=== PATIENT | female | born 1945 | race Caucasian/White ===

== ENCOUNTER 2018-02-04 20:58 | Emergency (ER) | payer MEDICARE, MEDICAID ==
[~2018-02-04] VITALS: Ht 167.6 cm; Wt 60.0 kg
[~2018-02-04 20:58] MED LIST: CENTTAB PO; CODCAP PO; LORA-361 PO; ZANT150T2 PO
[2018-02-04 21:47] VITALS: BP 128/60; PULSE 84; RESP 18; TEMP 98.6; O2SAT 98
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
== END 2018-02-05 00:37 | disposition left against medical advice (07) ==
LOC: NEPC 20:58
DX: T76.21XA Adult sexual abuse, suspected, initial encounter (principal); G35 Multiple sclerosis; Z72.0 Tobacco use; Z87.39 Personal history of other diseases of the musculoskeletal system and connective tissue; Z86.69 Personal history of other diseases of the nervous system and sense organs
CPT/HCPCS: 99281

== ENCOUNTER 2018-02-14 15:59 | Inpatient (IN) | payer MEDICARE, OTHER ==
[~2018-02-14] VITALS: Ht 167.6 cm; Wt 41.1 kg
[2018-02-14 16:10] VITALS: BP 160/71; PULSE 77; RESP 16; TEMP 98.6; O2SAT 98
--- NOTE | 2018-02-14 16:25 | PD ---
HPI Chief Complaint: Psychiatric Symptoms Time Seen by Provider: 16:15 Travel History International Travel<30 days: No Contact w/Intl Traveler<30days: No Traveled to known affect area: No History of Present Illness HPI 72-year-old female presents to the ED under Arriola act for psychiatric evaluation. According to the Arriola act paperwork the patient seemed disoriented and refused to answer questions of the police. They contacted her son who states she has not been taking her psychiatric medications. On presentation the patient is calm and cooperative. She denies suicidal or homicidal denies any psychiatric diagnoses. She denies any somatic complaints. She states "I thought I had a right to refuse to answer questions by the police." She is a smoker since age 18. Denies illicit drug use. Endorses occasional alcohol use. Denies any use today. PFSH Past Medical History Arthritis: Yes Dementia: Yes Diminished Hearing: No Medical other: Yes (MULTIPLE SCLEROSIS) Musculoskeletal: Yes (MS) Seizures: Yes (As a result of a fall years ago) Tetanus Vaccination: Never Vaccinated Influenza Vaccination: No ?: Not : 2 Para: 2 Past Surgical History Abdominal Surgery: Yes (hernia repair) Hysterectomy: Yes (PARTIAL) Other Surgery: Yes (HERNIA REPAIR) Social History Alcohol Use: Yes Tobacco Use: Yes (1/2PPD) Substance Use: No (PT DENIES) Allergies-Medications (Allergen,Severity, Reaction): Coded Allergies: No Known Allergies (Verified Adverse Reaction, Unknown, 02/14/18) Reported Meds & Prescriptions Reported Meds & Active Scripts Active Keflex (Cephalexin) 500 Mg Cap 500 Mg PO Q12H 5 Days Review of Systems Except as stated in HPI: all other systems reviewed are Neg Physical Exam Narrative GENERAL: Well-nourished, well-developed thin white female no acute distress. PSYCH: Cooperative, calm. SKIN: Focused skin assessment warm/dry. HEAD: Normocephalic. EYES: No scleral icterus. No injection or drainage. NECK: Supple, trachea midline. No JVD or lymphadenopathy. CARDIOVASCULAR: Regular rate and rhythm without murmurs, gallops, or rubs. RESPIRATORY: Breath sounds clear and equal bilaterally. No accessory muscle use. GASTROINTESTINAL: Abdomen soft, non-tender, nondistended. Active bowel sounds. MUSCULOSKELETAL: No cyanosis, or edema. BACK: Nontender without obvious deformity. No CVA tenderness. Data Data Last Documented VS Vital Signs Date Time Temp Pulse Resp B/P (MAP) Pulse Ox O2 Delivery O2 Flow Rate FiO2 02/14/18 17:39 81 21 163/71 (101) 100 Room Air 02/14/18 16:10 98.6 Orders Orders Complete Blood Count With Diff (02/14/18 16:14) Comprehensive Metabolic Panel (02/14/18 16:14) Thyroid Stimulating Hormone (02/14/18 16:14) Psych Screen (02/14/18 16:14) Drug Screen, Random Urine (02/14/18 16:14) Urinalysis - C+S If Indicated (02/14/18 16:15) Urine Culture (02/14/18 16:35) Cephalexin (Keflex) (02/14/18 17:45) Labs Laboratory Tests Test 02/14/18 16:08 02/14/18 16:35 White Blood Count 6.7 TH/MM3 Red Blood Count 5.03 MIL/MM3 Hemoglobin 14.6 GM/DL Hematocrit 44.7 % Mean Corpuscular Volume 88.9 FL Mean Corpuscular Hemoglobin 29.0 PG Mean Corpuscular Hemoglobin Concent 32.6 % Red Cell Distribution Width 14.2 % Platelet Count 226 TH/MM3 Mean Platelet Volume 9.4 FL Neutrophils (%) (Auto) 68.9 % Lymphocytes (%) (Auto) 20.1 % Monocytes (%) (Auto) 8.7 % Eosinophils (%) (Auto) 1.6 % Basophils (%) (Auto) 0.7 % Neutrophils # (Auto) 4.6 TH/MM3 Lymphocytes # (Auto) 1.3 TH/MM3 Monocytes # (Auto) 0.6 TH/MM3 Eosinophils # (Auto) 0.1 TH/MM3 Basophils # (Auto) 0.0 TH/MM3 CBC Comment DIFF FINAL Differential Comment Blood Urea Nitrogen 12 MG/DL Creatinine 0.76 MG/DL Random Glucose 88 MG/DL Total Protein 7.6 GM/DL Albumin 4.2 GM/DL Calcium Level 8.7 MG/DL Alkaline Phosphatase 79 U/L Aspartate Amino Transf (AST/SGOT) 32 U/L Alanine Aminotransferase (ALT/SGPT) 29 U/L Total Bilirubin 0.6 MG/DL Sodium Level 141 MEQ/L Potassium Level 3.7 MEQ/L Chloride Level 106 MEQ/L Carbon Dioxide Level 25.5 MEQ/L Anion Gap 10 MEQ/L Estimat Glomerular Filtration Rate 75 ML/MIN Thyroid Stimulating Hormone 3rd Gen 2.590 uIU/ML Urine Color YELLOW Urine Turbidity HAZY Urine pH 5.0 Urine Specific [place] 1.019 Urine Protein NEG mg/dL Urine Glucose (UA) NEG mg/dL Urine Ketones TRACE mg/dL Urine Occult Blood NEG Urine Nitrite NEG Urine Bilirubin NEG Urine Urobilinogen 2.0 mg/dL Urine Leukocyte Esterase LARGE Urine RBC LESS THAN 1 /hpf Urine WBC 33 /hpf Urine Squamous Epithelial Cells 5 /hpf Urine Bacteria OCC /hpf Urine Hyaline Casts 2 /lpf Urine Mucus MANY /lpf Microscopic Urinalysis Comment CULTURE INDICATED Urine Opiates Screen NEG Urine Barbiturates Screen NEG Urine Amphetamines Screen NEG Urine Benzodiazepines Screen NEG Urine Cocaine Screen NEG Urine Cannabinoids Screen NEG MDM Medical Decision Making Medical Screen Exam Complete: Yes Emergency Medical Condition: Yes Differential Diagnosis Adjustment disorder versus anxiety versus bipolar versus depression versus dementia versus electrolyte disorder versus malingering versus mood disorder versus ODD versus psychosis versus PTSD versus schizophrenia versus schizoaffective disorder versus substance-induced mood disorder versus other Narrative Course 72-year-old female presents to the ED under [place] Marg[place]ita act for psychiatric evaluation. According to the Anita Margarita act paperwork the patient seemed disoriented and refused to answer questions of the police. They contacted her son who states she has not been taking her psychiatric medications. She denies suicidal or homicidal denies any psychiatric diagnoses. She denies any somatic complaints. She states "I thought I had a right to refuse to answer questions by the police." She is a smoker since age 18. Denies illicit drug use. Endorses occasional alcohol use. Denies any use today. Vitals reviewed. Physical exam is unremarkable. No concerning abnormalities of the CBC, CMP. UA: Hazy, trace ketones, large leukocyte esterase, 33 WBCs, occasional bacteria. Culture indicated. Toxicology: Negative. Patient's prescribed Keflex 500 mg twice daily 5 days. First doses administered in the ED. She is medically cleared for psychiatric evaluation. Scripts Cephalexin (Keflex) 500 Mg Cap 500 MG PO Q12H for Infection for 5 Days, #10 CAP 0 Refills Prov: Aj Don MD 02/14/18 Yaneli Tan Feb 14, 2018 16:25
[2018-02-14 16:49] LABS: AUTOMATED NEUTROPHIL # 4.6 TH/MM3 (1.8-7.7); BASOPHIL % 0.7 % (0.0-2.0); EOSINOPHIL # 0.1 TH/MM3 (0-0.4); EOSINOPHIL % 1.6 % (0.0-4.0); HEMATOCRIT 44.7 % (35.0-46.0); HEMOGLOBIN 14.6 GM/DL (11.6-15.3); LYMPH % 20.1 % (9.0-44.0); LYMPHOCYTE # 1.3 TH/MM3 (1.0-4.8); MEAN CELL VOLUME 88.9 FL (80.0-100.0); MEAN CORPUSCULAR HGB CONC 32.6 % (32.0-36.0); MEAN PLATELET VOLUME 9.4 FL (7.0-11.0); MONO % 8.7 % (0.0-8.0); MONOCYTE # 0.6 TH/MM3 (0-0.9); NEUT % 68.9 % (16.0-70.0); PLATELET COUNT 226 TH/MM3 (150-450); RED BLOOD COUNT 5.03 MIL/MM3 (4.00-5.30); RED CELL DISTRIBUTION WIDTH 14.2 % (11.6-17.2); WHITE BLOOD COUNT 6.7 TH/MM3 (4.0-11.0)
[2018-02-14 17:24] LABS: ALBUMIN 4.2 GM/DL (3.4-5.0); ALT (GPT) 29 U/L (10-53); AST (GOT) 32 U/L (15-37); BICARBONATE 25.5 MEQ/L (21.0-32.0); BLOOD UREA NITROGEN 12 MG/DL (7-18); CALCIUM 8.7 MG/DL (8.5-10.1); CHLORIDE 106 MEQ/L (98-107); CREATININE 0.76 MG/DL (0.50-1.00); GLOMERULAR FILTRATION RATE 75 ML/MIN (>89); GLUCOSE,RANDOM 88 MG/DL (74-106); SODIUM (NA) 141 MEQ/L (136-145)
[2018-02-14 17:25] LABS: BACTERIA, URINE OCC /hpf; BILIRUBIN, URINE NEG (NEG); BLOOD, URINE NEG (NEG); GLUCOSE,URINE NEG (NEG); HYALINE CAST, URINE 2 /lpf (RARE); KETONE, URINE TRACE mg/dL (NEG); MUCUS URINE MANY /lpf (OCC); NITRITE,URINE NEG (NEG); SQUAMOUS EPITHELIAL CELL URINE 5 /hpf (0-5); URINE COLOR YELLOW (YELLW/STRAW); URINE LEUKOCYTE ESTERASE LARGE (NEG)
[2018-02-14 17:33] LABS: ALKALINE PHOSPHATASE 79 U/L (45-117); TOTAL BILIRUBIN ADULT 0.6 MG/DL (0.2-1.0); TOTAL PROTEIN 7.6 GM/DL (6.4-8.2)
[2018-02-14] MEDS ORDERED: CEPH-460 PO (17:35)
[2018-02-14 17:39] VITALS: BP 163/71; PULSE 81; RESP 21; O2SAT 100
[2018-02-14] MEDS ORDERED: CEPHALEXIN MONOHYDRATE 500 MG CAP PO ONE (17:45)
[2018-02-15] MEDS ORDERED: LORazepam 2 MG/ML VIAL IM ONE (01:45)
[2018-02-15 02:10] VITALS: BP 132/61; PULSE 65; RESP 20; O2SAT 96
[2018-02-15 08:23] VITALS: BP 111/54; PULSE 66; RESP 18; O2SAT 95
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
[2018-02-15] MEDS ORDERED: ALUMINUM/MAGNESIUM/SIMETH 30 ML CUP PO PRN (10:30)
[2018-02-15] MEDS ORDERED: ACETAMINOPHEN 325 MG TAB PO PRN (10:30)
[2018-02-15] MEDS ORDERED: MAGNESIUM HYDROXIDE SUSP 30 ML CUP PO PRN (10:30)
[2018-02-15] MEDS: CEPHALEXIN MONOHYDRATE 500 MG CAP PO SCH ×2 (11:00→23:00)
[2018-02-15] MEDS: NICOTINE 14 MG/24 HR PATCH T-DERMAL SCH (11:00)
[2018-02-15 11:47] VITALS: BP 115/57; PULSE 88; RESP 18; TEMP 98.2; O2SAT 92
[2018-02-15] MEDS ORDERED: UNIS25TA3 PO (17:39)
[2018-02-15 17:46] VITALS: BP 116/65; PULSE 80; RESP 18; TEMP 98.3; O2SAT 80
[2018-02-16 05:49] VITALS: BP 106/54; PULSE 54; RESP 16; TEMP 98.2; O2SAT 92
[2018-02-16 08:56] LABS: BICARBONATE 27.7 MEQ/L (21.0-32.0); BLOOD UREA NITROGEN 12 MG/DL (7-18); CALCIUM 8.8 MG/DL (8.5-10.1); CHLORIDE 107 MEQ/L (98-107); CREATININE 0.71 MG/DL (0.50-1.00); GLOMERULAR FILTRATION RATE 81 ML/MIN (>89); GLUCOSE,RANDOM 101 MG/DL (74-106); SODIUM (NA) 143 MEQ/L (136-145)
[2018-02-16 08:57] LABS: CHOLESTEROL 173 MG/DL (120-200)
[2018-02-16] MEDS: NICOTINE 14 MG/24 HR PATCH T-DERMAL SCH (09:00)
[2018-02-16] MEDS: REMOVE OLD PATCH T-DERMAL SCH (09:00)
[2018-02-16 09:24] LABS: CHOLESTEROL/ HDL RATIO 3.31 RATIO; HDL CHOLESTEROL 52.2 MG/DL (40.0-60.0); LDL CHOLESTEROL 106 MG/DL (0-99); TRIGLYCERIDES 73 MG/DL (42-150)
[2018-02-16] MEDS: CEPHALEXIN MONOHYDRATE 500 MG CAP PO SCH ×2 (11:00→23:00)
[2018-02-16 11:36] LABS: HEMOGLOBIN A1C 5.2 % (4.3-6.0)
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
[2018-02-16] MEDS ORDERED: diphenhydrAMINE HCL 50 MG CAP PO PRN (12:15)
[2018-02-16] MEDS ORDERED: LORazepam 0.5 MG TAB PO PRN (12:15)
[2018-02-16] MEDS: HALOPERIDOL 2 MG TAB PO SCH ×3 (13:45→21:30)
[2018-02-16] MEDS: HALOPERIDOL LACTATE 5 MG/ML AMP IM SCH ×2 (13:45→21:30)
[2018-02-16 17:32] VITALS: BP 119/56; PULSE 56; RESP 16; TEMP 98.2; O2SAT 93
--- NOTE | 2018-02-16 17:54 | EKG ---
Date Performed: 02/15/2018 Time Performed: 11:06:23 PTAGE: 72 years EKG: Sinus rhythm Poor R wave progression, cannot exclude anteroseptal infarct versus lead placement NORMAL ECG NO PREVIOUS TRACING DOCTOR: Richard Arroyo Interpretating Date/Time 02/16/2018 17:54:10
[2018-02-17 06:05] VITALS: BP 117/53; PULSE 58; RESP 16; TEMP 98.1; O2SAT 96
[2018-02-17] MEDS: HALOPERIDOL LACTATE 5 MG/ML AMP IM SCH ×2 (09:00→20:58)
[2018-02-17] MEDS: NICOTINE 14 MG/24 HR PATCH T-DERMAL SCH (09:00)
[2018-02-17] MEDS: REMOVE OLD PATCH T-DERMAL SCH (09:00)
[2018-02-17] MEDS: HALOPERIDOL 2 MG TAB PO SCH ×2 (09:00→20:57)
[2018-02-17] MEDS: CEPHALEXIN MONOHYDRATE 500 MG CAP PO SCH ×2 (11:00→22:32)
--- NOTE | 2018-02-17 15:13 | HHI.PYPN ---
Subjective Remarks Reviewed electronic medical records and discussed case with staff. Follow-up was conducted in the hallway. Patient was observed attempting to clean an area of the hallway with the sock on her foot. She states this is "calming to me". She shows some insight when she reports that she was [place] acted "to keep myself safe". She reports that she has been sleeping and eating well. She does have some difficulty with recalling her home address. Mental Status Examination Appearance: Appropriate Consciousness: Alert Orientation: x4 Motor Activity: Normal gait Speech: Hesitant Language: Adequate Fund of Knowledge: Adequate Attention and Concentration: Adequate Memory: Unremarkable Mood: Irritable Affect: Blunt Thought Process & Associations: Intact Thought Content: Bizarre thinking, Delusional Hallucination Type: Auditory (reports hears people talking) Delusion Type: Bizarre (People shooting drugs into her system, people taking her organs out of her body) Suicidal Ideation: No Suicidal Plan: No Suicidal Intention: No Homicidal Ideation: No Homicidal Plan: No Homicidal Intention: No Insight: Poor Judgment: Poor Results Labs Date/Time Source Procedure Growth Status 02/14/18 16:35 Urine Clean Catch Urine Culture - Final 50-100,000 CFU/ML MIXED NICANOR... Complete Vitals/IOs Vital Signs Date Time Temp Pulse Resp B/P (MAP) Pulse Ox O2 Delivery O2 Flow Rate FiO2 02/17/18 06:05 98.1 58 16 117/53 (74) 96 02/15/18 08:23 Room Air Assessment & Plan Problem List: (1) Dementia ICD Codes: F03.90 - Unspecified dementia without behavioral disturbance (2) Psychosis ICD Codes: F29 - Unspecified psychosis not due to a substance or known physiological condition Status: Acute Assessment & Plan Estimated LOS: Continue with current treatment plan. She will be reevaluated by her attending psychiatrist tomorrow. Days Justification for Cont. Inpt. Moving this patient to a less restrictive environment would likely result in decompensation. Problem Qualifiers (1) Psychosis: Qualified Codes: F29 - Unspecified psychosis not due to a substance or known physiological condition Albina Batres Feb 17, 2018 15:13
[2018-02-17 17:40] VITALS: BP 138/62; PULSE 75; RESP 16; TEMP 98.8; O2SAT 93
[2018-02-18 05:56] VITALS: BP 128/58; PULSE 74; RESP 16; TEMP 98.4; O2SAT 93
[2018-02-18 05:59] VITALS: BP 124/70; PULSE 74; RESP 16; TEMP 98.4; O2SAT 91
[2018-02-18] MEDS: HALOPERIDOL 2 MG TAB PO SCH ×2 (08:23→20:57)
[2018-02-18] MEDS: REMOVE OLD PATCH T-DERMAL SCH (08:26)
[2018-02-18] MEDS: HALOPERIDOL LACTATE 5 MG/ML AMP IM SCH ×2 (08:26→21:00)
[2018-02-18] MEDS: NICOTINE 14 MG/24 HR PATCH T-DERMAL SCH (08:26)
[2018-02-18] MEDS: CEPHALEXIN MONOHYDRATE 500 MG CAP PO SCH ×2 (09:29→23:00)
--- NOTE | 2018-02-18 11:17 | PD.TTN ---
Patient Problems 1. Discharge planning 2. Medication compliance 3. Knowledge deficit 4. Lack of coping skills Progress Toward Goals Provider Present: Dr. Luz Sheikh Provider Input: Dr. Sheikh's treatment team met to discuss patient's treatment plan, medication and discharge Patient continues to present psychotic, Will continue with treament. Nurse(s) Input: Patient's nurse reports patient psychotic, paranoid, medication compliant Psychiatric Counselors Present[facility] Input: Patient continues to present restless, paranoid, delusional, medication compliant Group Spec/RT/OT/OSPINA Input: Patient attends groups appropriately Tram Melendrez [facility] Feb 18, 2018 11:17
[2018-02-18] MEDS ORDERED: hydrOXYzine HCL 50 MG TAB PO PRN (16:15)
--- NOTE | 2018-02-18 16:26 | HHI.PYPN ---
Subjective Remarks Patient initially admitted by Dr. Benjamin Pearce's H&P reviewed and agreed with. I have finished the initial psychiatric admission template and med reconciliation review Dr. Pearce was done first opinion petition supporting Arriola act I agree. Patient meets criteria for involuntary psychiatric hospitalization thus I will cosign second opinion petition supporting Arriola act. Patient seen by me in day room with floor staff patient is alert diffusely confused and disoriented as to place time and situation. She told other staff that all her organs were removed from her body. She does not know why she is here. I attempted to explain that she has a urinary tract infection she showed very little insight into that. For now we will continue medications per the med reconciliation. Review of Systems Except as stated in HPI: all other systems reviewed are Neg Mental Status Examination Appearance: Appropriate Consciousness: Alert Orientation: x4 Motor Activity: Normal gait Speech: Hesitant Language: Adequate Fund of Knowledge: Adequate Attention and Concentration: Adequate Memory: Unremarkable Mood: Irritable Affect: Blunt Thought Process & Associations: Intact Thought Content: Bizarre thinking, Delusional Hallucination Type: Auditory (reports hears people talking) Delusion Type: Bizarre (People shooting drugs into her system, people taking her organs out of her body) Suicidal Ideation: No Suicidal Plan: No Suicidal Intention: No Homicidal Ideation: No Homicidal Plan: No Homicidal Intention: No Insight: Poor Judgment: Poor Results Labs Date/Time Source Procedure Growth Status 02/14/18 16:35 Urine Clean Catch Urine Culture - Final 50-100,000 CFU/ML MIXED NICANOR... Complete Vitals/IOs Vital Signs Date Time Temp Pulse Resp B/P (MAP) Pulse Ox O2 Delivery O2 Flow Rate FiO2 02/18/18 05:59 98.4 74 16 124/70 (88) 91 02/15/18 08:23 Room Air Assessment & Plan Problem List: (1) Psychosis ICD Codes: F29 - Unspecified psychosis not due to a substance or known physiological condition Status: Acute (2) DEMENTIA IN OTH DISEASES CLASSD ELSWHR W/O BEHAVRL DISTURB ICD Codes: F02.80 - DEMENTIA IN OTH DISEASES CLASSD ELSWHR W/O BEHAVRL DISTURB (3) ALZHEIMER'S DISEASE WITH LATE ONSET ICD Codes: G30.1 - ALZHEIMER'S DISEASE WITH LATE ONSET Assessment & Plan Estimated LOS: days patient remained psychotic diffusely confused. Needing much encouragement to have her urinary tract infection treated Justification for Cont. Inpt. At this time patient would decompensate a place to a lower level of care Discharge Planning To be determined Request HC Surrog/Guard Advoc?: Yes Problem Qualifiers (1) Psychosis: Qualified Codes: F29 - Unspecified psychosis not due to a substance or known physiological condition Joshua Sheikh MD Feb 18, 2018 16:26
[2018-02-18 18:11] VITALS: BP 122/57; PULSE 61; RESP 16; TEMP 98.6; O2SAT 93
[2018-02-19 05:59] VITALS: BP 129/60; PULSE 66; RESP 17; TEMP 98.2; O2SAT 94
[2018-02-19] MEDS: NICOTINE 14 MG/24 HR PATCH T-DERMAL SCH (09:00)
[2018-02-19] MEDS: HALOPERIDOL LACTATE 5 MG/ML AMP IM SCH ×2 (09:00→20:27)
[2018-02-19] MEDS: REMOVE OLD PATCH T-DERMAL SCH (09:00)
[2018-02-19] MEDS: HALOPERIDOL 2 MG TAB PO SCH (09:00)
[2018-02-19] MEDS: CEPHALEXIN MONOHYDRATE 500 MG CAP PO SCH ×2 (10:02→23:00)
--- NOTE | 2018-02-19 12:48 | HHI.PYPN ---
Subjective Remarks Patient seen in day room with nurse Kristy, chart reviewed, patient appears reluctantly compliant with medication of the is concerned that she may be cheeking the Haldol tablets. We will change her oral Haldol to elixir at same dose. Patient is showing no insight into her problems. She saw remains quite vigilant paranoid saying that she has her own doctor 2 blocks away that can take care of her medication I suggested we need to finalize discharge plans including physician follow-up she became more paranoid and then refused to talk to us. Review of Systems Except as stated in HPI: all other systems reviewed are Neg Mental Status Examination Appearance: Appropriate Consciousness: Alert Orientation: x4 Motor Activity: Normal gait Speech: Hesitant Language: Adequate Fund of Knowledge: Adequate Attention and Concentration: Adequate Memory: Unremarkable Mood: Irritable Affect: Blunt Thought Process & Associations: Intact Thought Content: Bizarre thinking, Delusional Hallucination Type: Auditory (reports hears people talking) Delusion Type: Bizarre (People shooting drugs into her system, people taking her organs out of her body) Suicidal Ideation: No Suicidal Plan: No Suicidal Intention: No Homicidal Ideation: No Homicidal Plan: No Homicidal Intention: No Insight: Poor Judgment: Poor Results Labs Date/Time Source Procedure Growth Status 02/14/18 16:35 Urine Clean Catch Urine Culture - Final 50-100,000 CFU/ML MIXED NICANOR... Complete Vitals/IOs Vital Signs Date Time Temp Pulse Resp B/P (MAP) Pulse Ox O2 Delivery O2 Flow Rate FiO2 02/19/18 05:59 98.2 66 17 129/60 (83) 94 02/15/18 08:23 Room Air Assessment & Plan Problem List: (1) Psychosis ICD Codes: F29 - Unspecified psychosis not due to a substance or known physiological condition Status: Acute (2) DEMENTIA IN OTH DISEASES CLASSD ELSWHR W/O BEHAVRL DISTURB ICD Codes: F02.80 - DEMENTIA IN OTH DISEASES CLASSD ELSWHR W/O BEHAVRL DISTURB (3) ALZHEIMER'S DISEASE WITH LATE ONSET ICD Codes: G30.1 - ALZHEIMER'S DISEASE WITH LATE ONSET Assessment & Plan Estimated LOS: days patient continues diffusely confused and quite paranoid vigilant and hostile. Question patient's compliance with cheeking meds would change oral Haldol to elixir Justification for Cont. Inpt. At this time patient would decompensate a place to a lower level of care Discharge Planning To be determined Request HC Surrog/Guard Advoc?: Yes Problem Qualifiers (1) Psychosis: Qualified Codes: F29 - Unspecified psychosis not due to a substance or known physiological condition Joshua Sheikh MD Feb 19, 2018 12:48
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
[2018-02-19 17:35] VITALS: BP 133/60; PULSE 66; RESP 18; TEMP 97.6; O2SAT 96
[2018-02-19] MEDS: HALOPERIDOL LACTATE ORAL CONC 10 MG/5 ML CUP PO SCH (20:26)
[2018-02-20 06:11] VITALS: BP 104/51; PULSE 61; RESP 18; TEMP 98.2; O2SAT 94
[2018-02-20] MEDS: CHOLECALCIFEROL (VIT D3) 1000 UNIT TAB PO SCH (08:27)
[2018-02-20] MEDS: HALOPERIDOL LACTATE ORAL CONC 10 MG/5 ML CUP PO SCH ×2 (08:27→20:55)
[2018-02-20] MEDS: REMOVE OLD PATCH T-DERMAL SCH (08:52)
[2018-02-20] MEDS: NICOTINE 14 MG/24 HR PATCH T-DERMAL SCH (08:52)
[2018-02-20] MEDS: HALOPERIDOL LACTATE 5 MG/ML AMP IM SCH ×2 (08:52→20:56)
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
[2018-02-20 18:52] VITALS: BP 121/56; PULSE 68; RESP 16; TEMP 98.6; O2SAT 94
[2018-02-21 06:11] VITALS: BP 107/50; PULSE 56; RESP 17; TEMP 98.8; O2SAT 94
[2018-02-21] MEDS: HALOPERIDOL LACTATE ORAL CONC 10 MG/5 ML CUP PO SCH (10:12)
[2018-02-21] MEDS: CHOLECALCIFEROL (VIT D3) 1000 UNIT TAB PO SCH (10:12)
[2018-02-21] MEDS: REMOVE OLD PATCH T-DERMAL SCH (10:18)
[2018-02-21] MEDS: HALOPERIDOL LACTATE 5 MG/ML AMP IM SCH (10:18)
[2018-02-21] MEDS: NICOTINE 14 MG/24 HR PATCH T-DERMAL SCH (10:18)
[2018-02-21] MEDS ORDERED: HALO2TAB PO (11:49)
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
== END 2018-02-21 19:00 | disposition home or self-care (01) | DRG 57 ==
LOC: NEDAMB 15:59 → NEDA 02-15 10:28 → H250 02-15 11:40
PROVIDERS: ADMIT Psychiatry & Neurology Psychiatry; ATTEND Psychiatry & Neurology Psychiatry
DX: G30.1 Alzheimer's disease with late onset (principal); N39.0 Urinary tract infection, site not specified; F02.80 Dementia in other diseases classified elsewhere, unspecified severity, without behavioral disturbance, psychotic disturbance, mood disturbance, and anxiety; G35 Multiple sclerosis; M19.90 Unspecified osteoarthritis, unspecified site; F17.210 Nicotine dependence, cigarettes, uncomplicated; Z91.14 Patient's other noncompliance with medication regimen
CPT/HCPCS: 80048; 80053; 80061; 80307; 81001; 82306; 82607; 83036; 84443; 85025; 87086; 93005; 96372; J0696; J1630; J2060